=== PATIENT | female | born 1980 | race Caucasian/White ===

== ENCOUNTER 2021-01-03 21:55 | Emergency (ER) | payer BC ==
[~2021-01-03] VITALS: Ht 172.7 cm; Wt 76.4 kg
[2021-01-03 22:04] VITALS: BP 128/88; TEMP 98.5
[2021-01-03 22:38] LABS: BASO # 0.1 (0.0-0.2); BASO % 0.9 % (0.0-2.0); EOS # 0.1 (0.0-0.7); GRAN % 58.5 % (42.2-75.2); HEMATOCRIT 39.1 % (37.0-47.0); HEMOGLOBIN 12.8 g/dl (12.5-16.0); LYMPH % 29.8 % (20.0-51.0); MEAN CELL VOLUME 85 fl (80.0-100.0); MEAN CORPUSCULAR HEMOGLOBIN 28 pg (27.0-31.0); MEAN CORPUSCULAR HGB CONC 33 g/dl (33.0-37.0); MEAN PLATELET VOLUME 10.4 fl (7.4-10.4); MONO # 0.7 (0.1-0.6); MONO % 9.5 % (1.7-9.3); PLATELET COUNT 272 K/mm3 (130-400)
[2021-01-03] MEDS ORDERED: HUMIRA(CF)10 MG/0.1 SQ (22:43)
[2021-01-03] MEDS ORDERED: TIROSINT50 MC1 PO (22:43)
[2021-01-03] MEDS ORDERED: VITAMIN D3400 I1 PO (22:44)
[2021-01-03] MEDS ORDERED: VITAMIN C500 MG PO (22:44)
[2021-01-03 22:49] LABS: ALBUMIN 4.1 gm/dL (3.5-5.0); BILIRUBIN,TOTAL 0.6 mg/dL (0.0-1.0); CALCIUM 9.4 mg/dL (8.4-10.2); CREATININE, serum 0.77 (0.52-1.25); POTASSIUM 4.1 mmol/L (3.4-5.0); TOTAL PROTEIN 7.6 gm/dL (6.4-8.2)
[2021-01-03] MEDS ORDERED: FIORICET 325 MG1 TA1 PO (23:47)
[2021-01-03] MEDS ORDERED: ANTIVERT 25MG25 MG PO (23:47)
[2021-01-03 23:53] VITALS: PULSE 81
== END 2021-01-03 23:54 | disposition home or self-care (01) ==
LOC: COL.ER 21:55
PROVIDERS: Nurse Practitioner Primary Care
DX: R51.9 Headache, unspecified (principal); R42 Dizziness and giddiness; Z20.822 Contact with and (suspected) exposure to COVID-19
CPT/HCPCS: J1200; J1885; J2405

== ENCOUNTER 2021-01-08 16:23 | Inpatient (IN) | payer BC ==
[~2021-01-08] VITALS: Ht 172.7 cm; Wt 78.9 kg
--- NOTE | 2021-01-08 15:30 | NUR ---
Patient arrived to the floor at this time. She is visibly uncomfortable and in pain. Provider notified for urgent orders. IV has been initiated in [facility], patient tolerated well. She is alert, orieted and pleasant at this time. Pain is located on the left side of her abd/ribs. Otherwise patient has no other needs at time. Fluids have been initiated. PAtient is aware of her POC. Continuing to [facility]. Will complete admission assessment AGGIE. Call light is in reach.
[~2021-01-08 16:23] MED LIST changes: -MIRALAX510G PO; -NORCO 325 MG-51 TAB PO; -OMNICEF 300MG300 MG PO; -PRILOSEC 20MG20 MG PO; -PROZAC 20MG20 MG PO; -ULTRAM 50MG TAB50 MG PO; -ZOFRAN ODT4 MG PO
[2021-01-08 17:11] VITALS: BP 139/89; PULSE 72; TEMP 98.4
[2021-01-08] MEDS ORDERED: PRILOSEC 20MG20 MG PO (18:24)
[2021-01-08 19:07] LABS: PH 6 (5-8); SQUAMOUS EPITHELIAL 0-2 /hpf; URINE APPEARANCE Clear; URINE BACTERIA Occasional /hpf; URINE BILIRUBIN Negative (NEGATIVE); URINE BLOOD Negative (NEGATIVE); URINE COLOR Straw; URINE GLUCOSE Negative (NEGATIVE); URINE KETONE Negative (NEGATIVE); URINE LEUKOCYTE ESTERASE Negative (NEGATIVE); URINE NITRATE Negative (NEGATIVE); URINE PROTEIN(semi-quant) Negative (NEGATIVE); URINE RBC 0-2 /hpf; URINE UROBILINOGEN Negative (NEGATIVE)
[2021-01-08 19:11] LABS: PHOSPHOROUS 3.9 mg/dL (2.5-4.5)
[2021-01-08 19:19] LABS: COLLECTION METHOD CLEAN CATCH
[2021-01-08 20:55] VITALS: BP 113/65; PULSE 70; TEMP 97.7
[2021-01-08 22:53] VITALS: BP 114/64; PULSE 68; TEMP 97.5
[2021-01-09] VITALS (8 sets, daily range): BP systolic 107–119; BP diastolic 52–70; PULSE 54–64; TEMP 97.6–99
[2021-01-09 07:07] LABS: BASO % 0.3 % (0.0-2.0); EOS # 0.1 (0.0-0.7); EOS % 1.3 % (0-4.0); GRAN # 3.9 (1.4-6.5); GRAN % 61.8 % (42.2-75.2); HEMOGLOBIN 11.3 g/dl (12.5-16.0); LYMPH # 1.6 (1.2-3.4); LYMPH % 25.8 % (20.0-51.0); MEAN CELL VOLUME 88 fl (80.0-100.0); MEAN CORPUSCULAR HEMOGLOBIN 29 pg (27.0-31.0); MEAN CORPUSCULAR HGB CONC 32 g/dl (33.0-37.0); MEAN PLATELET VOLUME 10.9 fl (7.4-10.4); MONO # 0.7 (0.1-0.6); MONO % 10.6 % (1.7-9.3); PLATELET COUNT 175 K/mm3 (130-400); RED BLOOD COUNT 3.97 M/mm3 (4.10-5.30); REDCELL DISTRIBUTION WIDTH-CV 12.8 % (11.5-14.5)
[2021-01-09 07:09] LABS: HEMATOCRIT 34.9 % (37.0-47.0)
[2021-01-09 07:17] LABS: CALCIUM 8.3 mg/dL (8.4-10.2); CREATININE, serum 2.24 (0.52-1.25); POTASSIUM 4.8 mmol/L (3.4-5.0)
--- NOTE | 2021-01-09 07:38 | NUR ---
Assessment complete. PAtient laying in bed awake at this time. States that she has had a good night other than the IV beeping. No complaints of pain or discomfort were expressed at this time. IV site is CD&I, but often distal occludes, loe wrap and additional tape used to attempt to prevent this. IVF continue to run at this time. Patient is aware to urinate in hat for accurate measuring. Patient remains indpendent in the room with no issues, calls when assistance is needed. Continuing to monitor. Call light is in reach.
[2021-01-09] MEDS ORDERED: PROZAC 20MG20 MG PO (09:32)
--- NOTE | 2021-01-09 10:58 | NUR ---
Residential Building Inspector attended clinical rounds with the team.
[2021-01-09 11:08] LABS: CREATININE, serum 2.15 (0.52-1.25)
[2021-01-09 11:28] LABS: FRACTIONAL EXCRETION OF NA+ 2.7 %
--- NOTE | 2021-01-09 13:43 | NUR ---
Primary nurse was assisted with [id number] patient care by [facility] KAT Nielsen and [facility] KAT Nielsen
--- NOTE | 2021-01-09 19:40 | NUR ---
Patient assessed at this time. Alert and oriented x 4, and able to make needs known. Reported pain to left eye/DUMONT related to migraine. Given one time dose of Reglan and given APAP. Refused Benadryl. Peripheral IV to left AC. Site without redness, warmth, swelling, and pain. Denies having SOB and dyspnea. LS CTA. Respirations even and unlabored. HRR. Capillary refill less than 3 seconds. Non-tenting skin turgor. BSAx4. Abdomen soft and non-tender. No edema. Voices no questions, needs, or concerns at this time. Resting in bed with call light within reach.
[2021-01-10 04:03] VITALS: BP 109/65; PULSE 51; TEMP 97.9
--- NOTE | 2021-01-10 06:32 | NUR ---
Patient has been resting in bed with call light within reach. Stated she had mild abdominal pain, but declined any pain medications this morning. Voices no questions, needs, or concerns at this time. Resting in bed with call light within reach.
[2021-01-10 07:11] LABS: MEAN CELL VOLUME 86 fl (80.0-100.0); MEAN CORPUSCULAR HGB CONC 33 g/dl (33.0-37.0); MEAN PLATELET VOLUME 11.4 fl (7.4-10.4); PLATELET COUNT 144 K/mm3 (130-400); RED BLOOD COUNT 3.42 M/mm3 (4.10-5.30)
[2021-01-10 07:16] LABS: HEMATOCRIT 29.5 % (37.0-47.0); HEMOGLOBIN 9.8 g/dl (12.5-16.0); MEAN CORPUSCULAR HEMOGLOBIN 29 pg (27.0-31.0)
[2021-01-10 07:19] LABS: ALBUMIN 2.9 gm/dL (3.5-5.0); BILIRUBIN,TOTAL 0.2 mg/dL (0.0-1.0); CALCIUM 7.8 mg/dL (8.4-10.2); CREATININE, serum 1.61 (0.52-1.25); POTASSIUM 4.8 mmol/L (3.4-5.0)
--- NOTE | 2021-01-10 08:27 | NUR ---
Pt doing well this morning. She is getting ready to order breakfast. Minimal pain complaints, no needs, will continue to monitor
[2021-01-10 08:31] VITALS: BP 128/83; PULSE 64; TEMP 98.4
[2021-01-10] MEDS ORDERED: OMNICEF 300MG300 MG PO (09:06)
[2021-01-10] MEDS ORDERED: MIRALAX510G PO (09:06)
[2021-01-10] MEDS ORDERED: PROZAC 20MG20 MG PO (09:06)
[2021-01-10] MEDS ORDERED: ZOFRAN ODT4 MG PO (09:07)
[2021-01-10] MEDS ORDERED: NORCO 325 MG-51 TAB PO (09:08)
[2021-01-10] MEDS ORDERED: ULTRAM 50MG TAB50 MG PO (12:21)
--- NOTE | 2021-01-10 13:12 | NUR ---
Reviewed discharge instructions with patient as well as making her follow up appointments. She states that she sees her aunt for gynecology. Informed her that they can call medical records for ultrasound if needed. Reviewed prescriptions as well. INT removed from left AC, tele called and informed of her discharge. Informed patient to ring when she was ready to leave.
--- NOTE | 2021-01-10 14:02 | NUR ---
SW met with patient to complete intake. Patient states that she lives alone in [place]. During intake patient states that her aunt is next of kin. Fercho Higginsnelson [phone], patient also appointed aunt as DPOA-HC during intake. Documenation reviewed, signed and witnesses. Documenation copied for patient records and original placed in chart. Patient states that she does not utilize any DME and is independent with ADL's. Patient provides her PCP is Dr Gibson, pharmacy is [facility], and she is able to afford her medications. Patient states her plan is to go back to her home upon DC and has no concerns with doing so. SW will continue to follow.
== END 2021-01-10 13:19 | disposition home or self-care (01) | DRG 690 ==
LOC: MEDICAL 16:23
PROVIDERS: Physician Assistant; ADMIT Student in an Organized Health Care Education/Training Program
DX: N12 Tubulo-interstitial nephritis, not specified as acute or chronic (principal); D64.9 Anemia, unspecified; E03.9 Hypothyroidism, unspecified; M06.9 Rheumatoid arthritis, unspecified; F32.9 Major depressive disorder, single episode, unspecified; F41.9 Anxiety disorder, unspecified; K21.9 Gastro-esophageal reflux disease without esophagitis; K59.00 Constipation, unspecified; G43.909 Migraine, unspecified, not intractable, without status migrainosus; N17.9 Acute kidney failure, unspecified; N84.0 Polyp of corpus uteri
CPT/HCPCS: 99223-AI; 99232-AI; 99239; J0696; J2270; J2405; J2550; J2765; J7030

== ENCOUNTER → 2021-01-08 | Outpatient (CLI) | payer BC ==
[~2021-01-08] MED LIST: ANTIVERT 25MG25 MG PO; FIORICET 325 MG1 TA1 PO; HUMIRA(CF)10 MG/0.1 SQ; MIRALAX510G PO; NORCO 325 MG-51 TAB PO; OMNICEF 300MG300 MG PO; PRILOSEC 20MG20 MG PO; PROZAC 20MG20 MG PO; TIROSINT50 MC1 PO; ULTRAM 50MG TAB50 MG PO; VITAMIN C500 MG PO; VITAMIN D3400 I1 PO; ZOFRAN ODT4 MG PO
[2021-01-08 12:11] LABS: ALBUMIN 4.4 gm/dL (3.5-5.0); BILIRUBIN,TOTAL 0.6 mg/dL (0.0-1.0); CALCIUM 9.6 mg/dL (8.4-10.2); CREATININE, serum 2.5 (0.52-1.25); POTASSIUM 4.9 mmol/L (3.4-5.0); TOTAL PROTEIN 8.2 gm/dL (6.4-8.2)
[2021-01-08 12:18] LABS: BASO % 0.4 % (0.0-2.0); EOS # 0.1 (0.0-0.7); EOS % 0.9 % (0-4.0); GRAN # 5.3 (1.4-6.5); GRAN % 66.4 % (42.2-75.2); HEMOGLOBIN 12.6 g/dl (12.5-16.0); LYMPH # 1.7 (1.2-3.4); LYMPH % 21.6 % (20.0-51.0); MEAN CELL VOLUME 85 fl (80.0-100.0); MEAN CORPUSCULAR HEMOGLOBIN 28 pg (27.0-31.0); MEAN CORPUSCULAR HGB CONC 33 g/dl (33.0-37.0); MEAN PLATELET VOLUME 10.8 fl (7.4-10.4); MONO # 0.8 (0.1-0.6); MONO % 10.3 % (1.7-9.3); PLATELET COUNT 228 K/mm3 (130-400); RED BLOOD COUNT 4.45 M/mm3 (4.10-5.30); REDCELL DISTRIBUTION WIDTH-CV 12.9 % (11.5-14.5)
== END ==
LOC: COL.RAD 11:20
PROVIDERS: Nurse Practitioner Family
DX: N12 Tubulo-interstitial nephritis, not specified as acute or chronic (principal)
CPT/HCPCS: Q9967

== ENCOUNTER 2021-04-22 13:00 | Outpatient (RCR) | payer BC ==
[~2021-04-22 13:00] MED LIST changes: +MIRALAX510G PO; +NORCO 325 MG-51 TAB PO; +OMNICEF 300MG300 MG PO; +PRILOSEC 20MG20 MG PO; +PROZAC 20MG20 MG PO; +ULTRAM 50MG TAB50 MG PO; +ZOFRAN ODT4 MG PO
== END 2021-07-09 ==
LOC: PT.GENESIS
DX: M25.552 Pain in left hip (principal)

== ENCOUNTER → 2022-05-28 | Outpatient (CLI) | payer BC | LOC: COL.VAS 05-25 13:15 | DX: I34.0 Nonrheumatic mitral (valve) insufficiency (principal) ==

== ENCOUNTER → 2024-05-30 | Outpatient (CLI) | payer BC ==
[~2024-05-30] MED LIST changes: +BENTYL 20MG20 MG/TAB PO
== END ==
LOC: MC.RAD 13:26
DX: Z12.31 Encounter for screening mammogram for malignant neoplasm of breast (principal)